=== PATIENT | female | born 1950 | race Caucasian/White ===

== ENCOUNTER → 2016-12-11 | Outpatient (CLI) | payer MEDICARE ==
[~2016-12-11] MED LIST: ASPI81TA50 PO; BIOT10TA PO; DILT120T3 PO; GABA300C10 PO; HYDR-3240 PO; METO25TA35 PO; METOPROLOL PO; MULT-516 PO; PRAV20TA2 PO; TIZA4TAB9 PO; TRAMADOL PO
[2016-12-11 08:54] LABS: ASPARTATE AMINO TRANSFERASE 15 U/L (15-37); BLOOD UREA NITROGEN 17 mg/dL (7-18)
== END | disposition home or self-care (01) ==
LOC: STAR 07:49
PROVIDERS: ATTEND Student in an Organized Health Care Education/Training Program
DX: Z01.818 Encounter for other preprocedural examination (principal); N83.209 Unspecified ovarian cyst, unspecified side; Z90.722 Acquired absence of ovaries, bilateral
CPT/HCPCS: 36415; 80053; 85025; 93005

== ENCOUNTER 2016-12-18 09:57 | Day surgery (SDC) | payer MEDICARE ==
[~2016-12-18] VITALS: Ht 170.2 cm; Wt 81.0 kg
[2016-12-18] MEDS ORDERED: LIDOCAINE 1%, 2ML ONE (10:16)
[2016-12-18] MEDS ORDERED: LACTATED RINGERS 1,000 ML IV SCH (10:20)
[2016-12-18] MEDS ORDERED: METO25TA35 PO (10:20)
[2016-12-18 10:21] VITALS: BP 148/91
[2016-12-18] MEDS ORDERED: LIDOCAINE 1%, 2ML SQ PRN (10:30)
[2016-12-18] MEDS ORDERED: FENTANYL PF 250 MCG/5ML ONE (11:16)
[2016-12-18] MEDS ORDERED: MIDAZOLAM 1 MG/ML, 2ML ONE (11:16)
[2016-12-18] MEDS ORDERED: BUPIVACAINE/PF-EPI 0.25% 1:200K ONE (11:41)
[2016-12-18] MEDS ORDERED: KETOROLAC 30 MG/1 ML ONE (12:09)
[2016-12-18] MEDS ORDERED: ROCURONIUM 10 MG/ML ONE (12:09)
[2016-12-18] MEDS ORDERED: SUCCINYLCHOLINE 20 MG/ML, 10ML ONE (12:09)
[2016-12-18] MEDS ORDERED: GLYCOPYRROLATE 0.2MG/1ML ONE (12:09)
[2016-12-18] MEDS ORDERED: DEXAMETHASONE 4 MG/ML, 1ML ONE (12:09)
[2016-12-18] MEDS ORDERED: PROPOFOL 10 MG/ML, 20ML ONE (12:09)
[2016-12-18] MEDS ORDERED: ONDANSETRON 2MG/ML, 2ML ONE (12:09)
[2016-12-18] MEDS ORDERED: NEOSTIGMINE 1 MG/ML, 10ML ONE (12:09)
[2016-12-18] MEDS ORDERED: HYDROmorphone 1 MG/ML, 1ML IV PRN (13:00)
[2016-12-18] MEDS ORDERED: MEPERIDINE/PF 25MG/0.5ML IVPush PRN (13:00)
[2016-12-18] MEDS ORDERED: LABETALOL 5MG/ML, 20ML IV PRN (13:00)
[2016-12-18] MEDS ORDERED: FENTANYL PF 100 MCG/2ML IV PRN (13:00)
[2016-12-18] MEDS ORDERED: OXYcodone 5 MG/5 ML ORAL.SOL UDC PO PRN (13:00)
[2016-12-18] MEDS ORDERED: ONDANSETRON 2MG/ML, 2ML IVPush PRN (13:00)
[2016-12-18] MEDS ORDERED: hydrALAzine 20 MG/ML, 1ML IV PRN (13:00)
[2016-12-18] MEDS ORDERED: MIDAZOLAM 1 MG/ML, 2ML IV PRN (13:00)
[2016-12-18] MEDS ORDERED: ACETAMINOPHEN 325 MG TABLET PO PRN (13:00)
[2016-12-18] MEDS ORDERED: PROMETHAZINE 25 MG/ML, 1ML IV PRN (13:00)
[2016-12-18] MEDS ORDERED: METOPROLOL 1 MG/ML, 5ML IV PRN (13:00)
[2016-12-18] MEDS ORDERED: ALBUTEROL SULFATE 2.5 MG/3 ML NPPB PRN (13:00)
[2016-12-18] MEDS ORDERED: EPHEDRINE 50 MG/ML, 1ML IVPush PRN (13:00)
[2016-12-18] MEDS ORDERED: ACETAMINOPHEN 650 MG/20.3 ML UDC ONE (13:38)
[2016-12-18] MEDS ORDERED: OXYcodone 5 MG/5 ML ORAL.SOL UDC ONE (13:38)
[2016-12-18] MEDS ORDERED: FENTANYL PF 100 MCG/2ML ONE (13:38)
== END 2016-12-18 15:40 | disposition home or self-care (01) ==
LOC: OUT 09:57 → MERGE 12:00 → OUT 15:40
PROVIDERS: ATTEND Student in an Organized Health Care Education/Training Program
DX: D27.0 Benign neoplasm of right ovary (principal); D27.1 Benign neoplasm of left ovary; D25.1 Intramural leiomyoma of uterus; D25.2 Subserosal leiomyoma of uterus; Z85.72 Personal history of non-Hodgkin lymphomas; I10 Essential (primary) hypertension; Z91.013 Allergy to seafood; Z88.6 Allergy status to analgesic agent
CPT/HCPCS: 36415; 49321; 58661; 86850; 86900; 88112; 88305; J0330; J1100; J1885; J2250; J2405; J2704; J2710; J3010; J3490; J7120; 88304

== ENCOUNTER → 2017-03-05 | Outpatient (CLI) | payer MEDICARE ==
[~2017-03-05] MED LIST changes: +OMNIPAQUE 350 MG/ML, 100ML BOTTLE ONE
== END | disposition home or self-care (01) ==
LOC: CFH 08:59
PROVIDERS: ATTEND Internal Medicine Hematology & Oncology
DX: C82.50 Diffuse follicle center lymphoma, unspecified site (principal); C82.00 Follicular lymphoma grade I, unspecified site; R59.0 Localized enlarged lymph nodes
CPT/HCPCS: 71260; 74177; Q9967

== ENCOUNTER → 2017-09-09 | Outpatient (CLI) | payer MEDICARE ==
[~2017-09-09] MED LIST changes: -OMNIPAQUE 350 MG/ML, 100ML BOTTLE ONE
== END | disposition home or self-care (01) ==
LOC: CFH 09:43
PROVIDERS: ATTEND Internal Medicine Hematology & Oncology
DX: R22.42 Localized swelling, mass and lump, left lower limb (principal); C82.05 Follicular lymphoma grade I, lymph nodes of inguinal region and lower limb

== ENCOUNTER → 2017-09-25 | Outpatient (CLI) | payer MEDICARE | END | disposition home or self-care (01) | LOC: PETCFH 12:36 | PROVIDERS: ATTEND Internal Medicine Hematology & Oncology | DX: R22.42 Localized swelling, mass and lump, left lower limb (principal); C82.05 Follicular lymphoma grade I, lymph nodes of inguinal region and lower limb | CPT/HCPCS: 78815; 93971; A9552 ==

== ENCOUNTER 2017-10-08 06:17 | Day surgery (SDC) | payer MEDICARE ==
[~2017-10-08] VITALS: Ht 170.2 cm; Wt 91.9 kg
[2017-10-08] MEDS ORDERED: CEFAZOLIN PMX 1GM/50ML 50 ML ONE (07:06)
[2017-10-08] MEDS ORDERED: ALPR0.25 PO (07:17)
[2017-10-08 07:19] VITALS: BP 132/84
[2017-10-08] MEDS ORDERED: CEFAZOLIN PMX 1GM/50ML 50 ML IV ONE (07:30)
[2017-10-08] MEDS ORDERED: SODIUM CHLORIDE 0.9% 1,000 ML IV SCH (07:30)
[2017-10-08] MEDS ORDERED: NALOXONE 1 MG/ML, 2ML ONE (07:40)
[2017-10-08] MEDS ORDERED: FLUMAZENIL 0.1 MG/1 ML, 5ML ONE (07:40)
[2017-10-08] MEDS ORDERED: MIDAZOLAM 1 MG/ML, 5ML ONE (07:40)
[2017-10-08] MEDS ORDERED: FENTANYL PF 100 MCG/2ML ONE (07:40)
[2017-10-08] MEDS ORDERED: LIDOCAINE 2%, 20ML ONE (07:59)
== END 2017-10-08 10:30 | disposition home or self-care (01) ==
LOC: OUT 06:17 → CARD 10:30
PROVIDERS: ATTEND Internal Medicine Hematology & Oncology
DX: Z45.2 Encounter for adjustment and management of vascular access device (principal); C82.05 Follicular lymphoma grade I, lymph nodes of inguinal region and lower limb; I10 Essential (primary) hypertension; Z88.1 Allergy status to other antibiotic agents; Z88.5 Allergy status to narcotic agent
CPT/HCPCS: 36561; 76937; 77001; 99156; 99157; C1894; J0690; J1642; J2250; J3010; J3490; J7030; J2310

== ENCOUNTER → 2017-12-04 | Outpatient (CLI) | payer MEDICARE ==
[~2017-12-04] MED LIST changes: +ALPR0.25 PO
== END ==
LOC: PETCFH 08:34
PROVIDERS: ATTEND Internal Medicine Hematology & Oncology
DX: C82.05 Follicular lymphoma grade I, lymph nodes of inguinal region and lower limb (principal)
CPT/HCPCS: 78815; A9552

== ENCOUNTER → 2018-02-18 | Outpatient (CLI) | payer MEDICARE | END | disposition home or self-care (01) | LOC: PETCFH 08:36 | PROVIDERS: ATTEND Internal Medicine Hematology & Oncology | DX: C82.05 Follicular lymphoma grade I, lymph nodes of inguinal region and lower limb (principal) | CPT/HCPCS: 78815; A9552 ==

== ENCOUNTER 2018-02-27 08:29 | Day surgery (SDC) | payer MEDICARE ==
[~2018-02-27] VITALS: Ht 170.2 cm; Wt 88.1 kg
[2018-02-27 09:19] VITALS: BP 119/78
[2018-02-27] MEDS ORDERED: LIDOCAINE-MPF 2%, 2ML ONE (10:19)
[2018-02-27] MEDS ORDERED: MIDAZOLAM 1 MG/ML, 5ML ONE (10:22)
[2018-02-27] MEDS ORDERED: FENTANYL PF 100 MCG/2ML ONE (10:22)
== END 2018-02-27 12:35 | disposition home or self-care (01) ==
LOC: OUT 08:29
PROVIDERS: ATTEND Internal Medicine Hematology & Oncology
DX: Z45.2 Encounter for adjustment and management of vascular access device (principal); Z85.72 Personal history of non-Hodgkin lymphomas; Z88.8 Allergy status to other drugs, medicaments and biological substances; Z88.5 Allergy status to narcotic agent; Z91.013 Allergy to seafood; Z79.899 Other long term (current) drug therapy
CPT/HCPCS: 36590; 77001; 99156; 99157; J2250; J3010; J3490

== ENCOUNTER 2019-02-10 08:02 | Outpatient (CLI) | payer MEDICARE | END 2019-02-10 23:59 | disposition home or self-care (01) | LOC: CFH 08:02 | PROVIDERS: ATTEND Internal Medicine Hematology & Oncology | DX: C82.05 Follicular lymphoma grade I, lymph nodes of inguinal region and lower limb (principal); K76.89 Other specified diseases of liver; N28.1 Cyst of kidney, acquired; M51.36 Other intervertebral disc degeneration, lumbar region | CPT/HCPCS: 71260; 74177; Q9967 ==

== ENCOUNTER 2019-02-17 09:42 | Outpatient (CLI) | payer MEDICARE | END 2019-02-17 23:59 | disposition home or self-care (01) | LOC: PETCFH 09:42 | PROVIDERS: ATTEND Internal Medicine Hematology & Oncology | DX: C82.05 Follicular lymphoma grade I, lymph nodes of inguinal region and lower limb (principal) | CPT/HCPCS: 78815; A9552 ==

== ENCOUNTER 2019-02-25 07:40 | Outpatient (CLI) | payer MEDICARE | END 2019-02-25 23:59 | disposition home or self-care (01) | LOC: CFH 07:40 | PROVIDERS: ATTEND Surgery | DX: M79.89 Other specified soft tissue disorders (principal) | CPT/HCPCS: 10035; J3490 ==

== ENCOUNTER → 2019-10-04 | Outpatient (CLI) | payer MEDICARE ==
[~2019-10-04] MED LIST changes: +ALLO100T30 PO; +ASPI-496 PO; +ONDA4TAB7 PO
== END | disposition home or self-care (01) ==
LOC: CFH 12:40
PROVIDERS: ATTEND Internal Medicine Hematology & Oncology
DX: I08.8 Other rheumatic multiple valve diseases (principal); C82.05 Follicular lymphoma grade I, lymph nodes of inguinal region and lower limb; E78.5 Hyperlipidemia, unspecified
CPT/HCPCS: 71046; 93306

== ENCOUNTER 2019-10-06 09:29 | Outpatient (CLI) | payer MEDICARE | END 2019-10-06 23:59 | disposition home or self-care (01) | LOC: CARD 09:29 | PROVIDERS: ATTEND Internal Medicine Hematology & Oncology | DX: C82.05 Follicular lymphoma grade I, lymph nodes of inguinal region and lower limb (principal) | CPT/HCPCS: 93005; 94010; 94726; 94729 ==

== ENCOUNTER 2019-12-28 14:43 | Outpatient (CLI) | payer MEDICARE ==
[2019-12-28] MEDS ORDERED: OMNIPAQUE 350 MG/ML, 75ML BOTTLE ONE (15:33)
[2019-12-28 16:32] LABS: ALANINE AMINOTRANSFERASE 21 U/L (12-78); ALBUMIN 3.3 g/dL (3.4-5.0); ANION GAP 6 mmol/L (5-15); CALCIUM 8.9 mg/dL (8.5-10.1); CHLORIDE 108 mmol/L (98-107); CREATININE 1.59 mg/dL (0.55-1.02)
[2019-12-28 16:34] LABS: ALKALINE PHOSPHATASE 75 U/L (45-117); BILIRUBIN,TOTAL 0.3 mg/dL (0.2-1.0); TOTAL PROTEIN 6.6 g/dL (6.4-8.2)
== END 2019-12-28 23:59 | disposition home or self-care (01) ==
LOC: CFH 14:43
PROVIDERS: ATTEND Internal Medicine Hematology & Oncology
DX: C82.05 Follicular lymphoma grade I, lymph nodes of inguinal region and lower limb (principal)
CPT/HCPCS: 36415; 71260; 80053; 82565; Q9967

== ENCOUNTER → 2020-01-19 | Outpatient (CLI) | payer MEDICARE | END | disposition home or self-care (01) | LOC: CARD 14:02 | PROVIDERS: ATTEND Internal Medicine Hematology & Oncology | DX: C82.05 Follicular lymphoma grade I, lymph nodes of inguinal region and lower limb (principal) | CPT/HCPCS: 94010; 94726; 94729 ==

== ENCOUNTER → 2020-01-26 | Outpatient (CLI) | payer MEDICARE ==
[2020-01-26 09:57] LABS: MEAN CORPUSCULAR HEMOGLOBIN 33.9 pg (27.0-34.8); MEAN CORPUSCULAR HGB CONC 33.1 g/dL (32.4-35.8); MEAN CORPUSCULAR VOLUME 102.6 fL (80-100); MEAN PLATELET VOLUME 10.2 fL (7.4-10.4); PLATELET COUNT 170 x10^3/uL (130-400); RED BLOOD COUNT 3.59 x10^6/uL (3.82-5.3); RED CELL DISTRIBUTION WIDTH 17.2 % (9.6-15.2)
[2020-01-26 10:22] LABS: MD YES
[2020-01-26 10:27] LABS: <PLATELET ESTIMATE> ADEQUATE; ANISOCYTOSIS 1+; BAND#(MANUAL) 0.04 x10^3/uL; BANDS%(MANUAL) 2 % (0-7); LYMPH#(MANUAL) 0.79 x10^3/uL (1-3.4); LYMPHS% (MANUAL) 36 % (22-44); MONOS#(MANUAL) 0.57 x10^3/uL (0.3-2.7); MONOS% (MANUAL) 26 % (2-9); SEG#(MANUAL) 0.79 x10^3/uL (1.8-6.8); SEGS% (MANUAL) 36 % (42-75)
[2020-01-26 10:28] LABS: <PLT MORPHOLOGY> NORMAL PLT MORPH
[2020-01-26 10:43] LABS: ALANINE AMINOTRANSFERASE 28 U/L (12-78); ALBUMIN 3.3 g/dL (3.4-5.0); ANION GAP 5 mmol/L (5-15); CALCIUM 8.8 mg/dL (8.5-10.1); CHLORIDE 106 mmol/L (98-107); CREATININE 1.49 mg/dL (0.55-1.02)
[2020-01-26 10:46] LABS: ALKALINE PHOSPHATASE 83 U/L (45-117); BILIRUBIN,TOTAL 0.3 mg/dL (0.2-1.0); TOTAL PROTEIN 6.7 g/dL (6.4-8.2)
== END | disposition home or self-care (01) ==
LOC: LAB 09:42
PROVIDERS: ATTEND Internal Medicine Hematology & Oncology
DX: Z51.11 Encounter for antineoplastic chemotherapy (principal); Z51.12 Encounter for antineoplastic immunotherapy; C82.50 Diffuse follicle center lymphoma, unspecified site; C82.00 Follicular lymphoma grade I, unspecified site; D70.1 Agranulocytosis secondary to cancer chemotherapy; F43.22 Adjustment disorder with anxiety; L03.818 Cellulitis of other sites; K76.1 Chronic passive congestion of liver; R53.0 Neoplastic (malignant) related fatigue; Z79.899 Other long term (current) drug therapy
CPT/HCPCS: 36415; 80053; 85025

== ENCOUNTER → 2020-01-31 | Outpatient (CLI) | payer MEDICARE ==
[2020-01-31 09:15] LABS: ALANINE AMINOTRANSFERASE 26 U/L (12-78); ALBUMIN 3.1 g/dL (3.4-5.0); ANION GAP 7 mmol/L (5-15); CALCIUM 8.9 mg/dL (8.5-10.1); CHLORIDE 106 mmol/L (98-107); CREATININE 1.46 mg/dL (0.55-1.02)
[2020-01-31 09:17] LABS: ALKALINE PHOSPHATASE 78 U/L (45-117); BILIRUBIN,TOTAL 0.4 mg/dL (0.2-1.0); TOTAL PROTEIN 5.9 g/dL (6.4-8.2)
[2020-01-31 09:28] LABS: MEAN CORPUSCULAR HEMOGLOBIN 33.9 pg (27.0-34.8); MEAN CORPUSCULAR HGB CONC 32.8 g/dL (32.4-35.8); MEAN CORPUSCULAR VOLUME 103.4 fL (80-100); MEAN PLATELET VOLUME 10.3 fL (7.4-10.4); PLATELET COUNT 151 x10^3/uL (130-400); RED BLOOD COUNT 3.37 x10^6/uL (3.82-5.3); RED CELL DISTRIBUTION WIDTH 17.5 % (9.6-15.2)
[2020-01-31 09:55] LABS: MD YES
[2020-01-31 09:57] LABS: ANISOCYTOSIS 1+; LYMPH#(MANUAL) 0.51 x10^3/uL (1-3.4); LYMPHS% (MANUAL) 19 % (22-44); METAMYELOCYTES# (MANUAL) 0.03 x10^3/uL (0-0); METAMYELOCYTES% (MANUAL) 1 % (0-1); MONOS#(MANUAL) 0.08 x10^3/uL (0.3-2.7); MONOS% (MANUAL) 3 % (2-9); SEG#(MANUAL) 2.08 x10^3/uL (1.8-6.8); SEGS% (MANUAL) 77 % (42-75)
[2020-01-31 10:01] LABS: <PLATELET ESTIMATE> ADEQUATE; <PLT MORPHOLOGY> NORMAL PLT MORPH
== END | disposition home or self-care (01) ==
LOC: LAB 08:48
PROVIDERS: ATTEND Internal Medicine Hematology & Oncology
DX: Z51.11 Encounter for antineoplastic chemotherapy (principal); Z51.12 Encounter for antineoplastic immunotherapy; C82.05 Follicular lymphoma grade I, lymph nodes of inguinal region and lower limb; C82.00 Follicular lymphoma grade I, unspecified site; D70.1 Agranulocytosis secondary to cancer chemotherapy; L03.818 Cellulitis of other sites; K76.1 Chronic passive congestion of liver; R53.0 Neoplastic (malignant) related fatigue; R59.0 Localized enlarged lymph nodes; F43.22 Adjustment disorder with anxiety; Z79.899 Other long term (current) drug therapy
CPT/HCPCS: 36415; 80053; 85025

== ENCOUNTER → 2020-02-04 | Outpatient (CLI) | payer MEDICARE ==
[2020-02-04 10:11] LABS: MEAN CORPUSCULAR HEMOGLOBIN 34.5 pg (27.0-34.8); MEAN CORPUSCULAR VOLUME 104.5 fL (80-100); PLATELET COUNT 124 x10^3/uL (130-400); RED BLOOD COUNT 3.52 x10^6/uL (3.82-5.3); RED CELL DISTRIBUTION WIDTH 17.6 % (9.6-15.2)
[2020-02-04 10:25] LABS: ANION GAP 6 mmol/L (5-15); CALCIUM 8.5 mg/dL (8.5-10.1); CHLORIDE 100 mmol/L (98-107)
[2020-02-04 10:28] LABS: ALANINE AMINOTRANSFERASE 25 U/L (12-78); ALKALINE PHOSPHATASE 80 U/L (45-117); BILIRUBIN,TOTAL 0.5 mg/dL (0.2-1.0); CREATININE 1.68 mg/dL (0.55-1.02); TOTAL PROTEIN 6.3 g/dL (6.4-8.2)
[2020-02-04 10:53] LABS: MD YES
[2020-02-04 11:20] LABS: LYMPH#(MANUAL) 0.38 x10^3/uL (1-3.4); LYMPHS% (MANUAL) 13 % (22-44); METAMYELOCYTES# (MANUAL) 0.06 x10^3/uL (0-0); METAMYELOCYTES% (MANUAL) 2 % (0-1); MONOS% (MANUAL) 7 % (2-9); SEG#(MANUAL) 2.26 x10^3/uL (1.8-6.8); SEGS% (MANUAL) 78 % (42-75)
[2020-02-04 11:21] LABS: ANISOCYTOSIS 1+; LARGE PLATELETS 1+
[2020-02-04 11:23] LABS: <PLATELET ESTIMATE> DECREASED
== END | disposition home or self-care (01) ==
LOC: LAB 09:54
PROVIDERS: ATTEND Internal Medicine Hematology & Oncology
DX: Z51.11 Encounter for antineoplastic chemotherapy (principal); Z51.12 Encounter for antineoplastic immunotherapy; C82.05 Follicular lymphoma grade I, lymph nodes of inguinal region and lower limb; C82.00 Follicular lymphoma grade I, unspecified site; D70.1 Agranulocytosis secondary to cancer chemotherapy; L03.818 Cellulitis of other sites; R53.0 Neoplastic (malignant) related fatigue; K76.1 Chronic passive congestion of liver; R59.0 Localized enlarged lymph nodes; F43.22 Adjustment disorder with anxiety; Z79.899 Other long term (current) drug therapy
CPT/HCPCS: 36415; 80053; 85025

== ENCOUNTER 2020-03-07 14:38 | Outpatient (CLI) | payer MEDICARE ==
[2020-03-10] MEDS ORDERED: POTA20TA89 PO (08:33)
== END 2020-03-07 23:59 | disposition home or self-care (01) ==
LOC: CARD 14:38
PROVIDERS: ATTEND Internal Medicine Hematology & Oncology
DX: Z51.11 Encounter for antineoplastic chemotherapy (principal); R94.2 Abnormal results of pulmonary function studies; C82.05 Follicular lymphoma grade I, lymph nodes of inguinal region and lower limb; N18.3 Chronic kidney disease, stage 3 (moderate)
CPT/HCPCS: 94010; 94726; 94729

== ENCOUNTER 2020-04-12 07:58 | Day surgery (SDC) | payer MEDICARE ==
[~2020-04-12] VITALS: Ht 167.6 cm; Wt 73.1 kg
[~2020-04-12 07:58] MED LIST changes: +POTA20TA89 PO
[2020-04-12 09:13] VITALS: BP 168/97
[2020-04-12] MEDS ORDERED: ACYCLOVIR (09:16)
[2020-04-12 09:58] LABS: MEAN CORPUSCULAR HEMOGLOBIN 35.4 pg (27.0-34.8); MEAN CORPUSCULAR HGB CONC 33.3 g/dL (32.4-35.8); MEAN PLATELET VOLUME 8.9 fL (7.4-10.4); PLATELET COUNT 234 x10^3/uL (130-400); RED CELL DISTRIBUTION WIDTH 17.3 % (9.6-15.2)
[2020-04-12] MEDS ORDERED: MIDAZOLAM 1 MG/ML, 5ML ONE (10:17)
[2020-04-12] MEDS ORDERED: FENTANYL PF 100 MCG/2ML ONE (10:17)
[2020-04-12] MEDS ORDERED: FLUMAZENIL 0.1 MG/1 ML, 5ML ONE (10:17)
[2020-04-12] MEDS ORDERED: NALOXONE 1 MG/ML, 2ML ONE (10:17)
[2020-04-12 10:37] LABS: MD YES
[2020-04-12 10:43] LABS: BANDS%(MANUAL) 2 % (0-7); BASOS#(MANUAL) 0.05 x10^3/uL (0-0.1); BASOS% (MANUAL) 1 % (0-1); LYMPH#(MANUAL) 0.93 x10^3/uL (1-3.4); LYMPHS% (MANUAL) 19 % (22-44); METAMYELOCYTES# (MANUAL) 0.05 x10^3/uL (0-0); METAMYELOCYTES% (MANUAL) 1 % (0-1); MONOS#(MANUAL) 0.74 x10^3/uL (0.3-2.7); MONOS% (MANUAL) 15 % (2-9); SEG#(MANUAL) 3.04 x10^3/uL (1.8-6.8); SEGS% (MANUAL) 62 % (42-75)
[2020-04-12 10:44] LABS: PMNS WITH VACUOLES 1+; TOXIC GRAN 1+
[2020-04-12 10:45] LABS: <PLATELET ESTIMATE> ADEQUATE; <PLT MORPHOLOGY> NORMAL PLT MORPH
[2020-04-12 10:46] LABS: ANISOCYTOSIS 1+
[2020-04-12 10:51] LABS: TEAR DROPS 1+
[2020-04-12 10:53] LABS: POLYCHROMASIA 1+
== END 2020-04-12 11:55 | disposition home or self-care (01) ==
LOC: OUT 07:58
PROVIDERS: ATTEND Internal Medicine Hematology & Oncology
DX: C82.05 Follicular lymphoma grade I, lymph nodes of inguinal region and lower limb (principal); I10 Essential (primary) hypertension; Z88.5 Allergy status to narcotic agent; Z91.013 Allergy to seafood; Z79.899 Other long term (current) drug therapy; Z72.89 Other problems related to lifestyle; Z82.49 Family history of ischemic heart disease and other diseases of the circulatory system
CPT/HCPCS: 36415; 38222; 77012; 85025; 85060; 85097; 88237; 88264; 88280; 88305; 88311; 88313; 99156; 99157; J2250; J3010; J2310

== ENCOUNTER 2020-07-29 10:34 | Emergency (ER) | payer MEDICARE ==
[~2020-07-29] VITALS: Ht 165.1 cm; Wt 70.6 kg
[~2020-07-29 10:34] MED LIST changes: +ACYCLOVIR; +DILT60TA30 PO
[2020-07-29] MEDS ORDERED: SODIUM CHLORIDE 0.9% 1,000 ML IV ONE (11:30)
[2020-07-29] MEDS ORDERED: AZITHROMYCIN 500 MG TABLET PO/NG ONE (11:30)
[2020-07-29] MEDS ORDERED: DEXAMETHASONE 4 MG/ML, 1ML IVPush ONE (11:30)
[2020-07-29] MEDS ORDERED: SODIUM CHLORIDE FLUSH 10ML SYR IVF ONE (11:30)
[2020-07-29] MEDS ORDERED: CEFTRIAXONE PMX 1GM/50ML 50 ML IV ONE (11:30)
[2020-07-29 11:44] LABS: MEAN CORPUSCULAR HEMOGLOBIN 33.7 pg (27.0-34.8); MEAN CORPUSCULAR HGB CONC 34.4 g/dL (32.4-35.8); PLATELET COUNT 295 x10^3/uL (130-400); RED BLOOD COUNT 3.25 x10^6/uL (3.82-5.3); RED CELL DISTRIBUTION WIDTH 13.6 % (9.6-15.2)
[2020-07-29 11:56] LABS: ALANINE AMINOTRANSFERASE 20 U/L (12-78); ALBUMIN 2.9 g/dL (3.4-5.0); ANION GAP 7 mmol/L (5-15); CALCIUM 9.3 mg/dL (8.5-10.1); CHLORIDE 100 mmol/L (98-107); CREATININE 2.51 mg/dL (0.55-1.02)
[2020-07-29] MEDS ORDERED: AZITHROMYCIN 250 MG TABLET ONE (11:56)
[2020-07-29] MEDS ORDERED: CEFTRIAXONE PMX 1GM/50ML 50 ML ONE (11:56)
[2020-07-29] MEDS ORDERED: DEXAMETHASONE 4 MG/ML, 1ML ONE (11:56)
[2020-07-29 11:58] LABS: ALKALINE PHOSPHATASE 69 U/L (45-117); BILIRUBIN,TOTAL 0.3 mg/dL (0.2-1.0); TOTAL PROTEIN 7.2 g/dL (6.4-8.2)
[2020-07-29 12:06] LABS: MD YES
[2020-07-29 12:08] VITALS: BP 134/77
[2020-07-29 12:08] LABS: LYMPH#(MANUAL) 0.48 x10^3/uL (1-3.4); LYMPHS% (MANUAL) 7 % (22-44); MONOS#(MANUAL) 0.48 x10^3/uL (0.3-2.7); MONOS% (MANUAL) 7 % (2-9); SEG#(MANUAL) 5.85 x10^3/uL (1.8-6.8); SEGS% (MANUAL) 86 % (42-75)
[2020-07-29 12:09] LABS: <PLATELET ESTIMATE> ADEQUATE; <PLT MORPHOLOGY> NORMAL PLT MORPH; <RBC MORPHOLOGY> NORMAL
[2020-07-29 13:04] LABS: MICROSCOPIC AUTO
== END 2020-07-29 14:16 | disposition home or self-care (01) ==
LOC: ED 11:09
DX: J18.9 Pneumonia, unspecified organism (principal); Z20.822 Contact with and (suspected) exposure to COVID-19; R63.0 Anorexia; M79.10 Myalgia, unspecified site; R51.9 Headache, unspecified; R30.0 Dysuria; I10 Essential (primary) hypertension; E78.00 Pure hypercholesterolemia, unspecified; Z90.722 Acquired absence of ovaries, bilateral; Z68.25 Body mass index [BMI] 25.0-25.9, adult
CPT/HCPCS: 36415; 71045; 80053; 81001; 83605; 84145; 85025; 87040; 87635; 96365; 96375; 99285; J0696; J1100; J7030

== ENCOUNTER → 2020-08-25 | Outpatient (CLI) | payer MEDICARE ==
[~2020-08-25] MED LIST changes: -DILT60TA30 PO; +DILT60TA36 PO; +HYDR-1067 PO; -HYDR-3240 PO
[2020-08-25 11:03] LABS: ALANINE AMINOTRANSFERASE 18 U/L (12-78); ALBUMIN 3.6 g/dL (3.4-5.0); ANION GAP 7 mmol/L (5-15); CALCIUM 9.5 mg/dL (8.5-10.1); CHLORIDE 106 mmol/L (98-107)
[2020-08-25 11:06] LABS: ALKALINE PHOSPHATASE 81 U/L (45-117); BILIRUBIN,TOTAL 0.4 mg/dL (0.2-1.0); CREATININE 2.05 mg/dL (0.55-1.02); TOTAL PROTEIN 6.7 g/dL (6.4-8.2)
[2020-08-25 11:19] LABS: BASOPHILS % (AUTO) 1 % (0-1); EOSINOPHILS % (AUTO) 9 % (1-7); LYMPHOCYTES % (AUTO) 18 % (22-44); MEAN CORPUSCULAR HEMOGLOBIN 34.9 pg (27.0-34.8); MEAN CORPUSCULAR HGB CONC 34.4 g/dL (32.4-35.8); MONOCYTES % (AUTO) 9 % (2-9); NEUTROPHILS % (AUTO) 63 % (42-75); PLATELET COUNT 254 x10^3/uL (130-400); RED BLOOD COUNT 3.05 x10^6/uL (3.82-5.3); RED CELL DISTRIBUTION WIDTH 15.2 % (9.6-15.2)
[2020-08-25 11:25] LABS: MD NO
== END | disposition home or self-care (01) ==
LOC: LAB 10:36
PROVIDERS: ATTEND Internal Medicine Hematology & Oncology
DX: Z51.11 Encounter for antineoplastic chemotherapy (principal); Z51.12 Encounter for antineoplastic immunotherapy; C82.05 Follicular lymphoma grade I, lymph nodes of inguinal region and lower limb; C82.00 Follicular lymphoma grade I, unspecified site; D70.1 Agranulocytosis secondary to cancer chemotherapy; L03.818 Cellulitis of other sites; K76.1 Chronic passive congestion of liver; R53.0 Neoplastic (malignant) related fatigue; R59.0 Localized enlarged lymph nodes; Z79.899 Other long term (current) drug therapy; F43.22 Adjustment disorder with anxiety
CPT/HCPCS: 36415; 80053; 83735; 85025

== ENCOUNTER → 2020-10-26 | Outpatient (CLI) | payer MEDICARE ==
[~2020-10-26] MED LIST changes: +DILT60TA30 PO; -DILT60TA36 PO
== END | disposition home or self-care (01) ==
LOC: CFH 15:37
PROVIDERS: ATTEND Internal Medicine Nephrology
DX: C85.89 Other specified types of non-Hodgkin lymphoma, extranodal and solid organ sites (principal); I12.9 Hypertensive chronic kidney disease with stage 1 through stage 4 chronic kidney disease, or unspecified chronic kidney disease; N17.9 Acute kidney failure, unspecified; E87.6 Hypokalemia; Z94.84 Stem cells transplant status
CPT/HCPCS: 76770

== ENCOUNTER → 2020-11-22 | Outpatient (CLI) | payer MEDICARE ==
[~2020-11-22] MED LIST changes: -HYDR-1067 PO; +HYDR-2214 PO
[2020-11-22 10:54] LABS: ABSOLUTE RETICS # 0.023 x10^6/uL (0.5-2.5); BASOPHILS % (AUTO) 0 % (0-1); EOSINOPHILS % (AUTO) 12 % (1-7); LYMPHOCYTES % (AUTO) 13 % (22-44); MEAN CORPUSCULAR HEMOGLOBIN 34.1 pg (27.0-34.8); MEAN CORPUSCULAR HGB CONC 33.7 g/dL (32.4-35.8); MEAN PLATELET VOLUME 8.9 fL (7.4-10.4); MONOCYTES % (AUTO) 12 % (2-9); NEUTROPHILS % (AUTO) 62 % (42-75); PLATELET COUNT 262 x10^3/uL (130-400); RED BLOOD COUNT 3.32 x10^6/uL (3.82-5.3); RED CELL DISTRIBUTION WIDTH 12.6 % (9.6-15.2)
[2020-11-22 11:02] LABS: % IRON SATURATION 15 % (20-55); IRON LEVEL 37 mcg/dL (50-170); TOTAL IRON BINDING CAPACITY 254 mcg/dL (250-450)
[2020-11-22 11:08] LABS: MD SCAN
[2020-11-22 11:35] LABS: FOLATE LEVEL > 20.0 ng/mL (3.1-17.5)
== END | disposition home or self-care (01) ==
LOC: LAB 10:29
PROVIDERS: ATTEND Internal Medicine Hematology & Oncology
DX: Z51.12 Encounter for antineoplastic immunotherapy (principal); Z51.11 Encounter for antineoplastic chemotherapy; C82.06 Follicular lymphoma grade I, intrapelvic lymph nodes; C82.05 Follicular lymphoma grade I, lymph nodes of inguinal region and lower limb; C82.00 Follicular lymphoma grade I, unspecified site; D70.1 Agranulocytosis secondary to cancer chemotherapy; F43.22 Adjustment disorder with anxiety; L03.818 Cellulitis of other sites; K76.1 Chronic passive congestion of liver; R53.0 Neoplastic (malignant) related fatigue; R59.0 Localized enlarged lymph nodes; Z79.899 Other long term (current) drug therapy
CPT/HCPCS: 36415; 82607; 82668; 82728; 82746; 83540; 83550; 85025; 85045

== ENCOUNTER 2020-11-25 13:28 | Emergency (ER) | payer MEDICARE ==
[~2020-11-25] VITALS: Ht 165.1 cm; Wt 71.7 kg
--- NOTE | 2020-11-25 13:44 | NUR ---
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
--- NOTE | 2020-11-25 14:04 | NUR ---
PT AMBULATORY TO ROOM 10 W/ C/O FEELING SOB, CHEST TIGHTNESS, COUGH, FEVER LAST NOC HIGH 102 F, GEN WEAKNESS, CHILLS STARTED 5 DAYS AGO. PT STATES SHE HAS RECEIVED BOTH COVID VACCINES IN MID SEPTEMBER. PT STATES HX PNA AND IS CONCERNED FOR THAT. PT SPEAKING IN FULL SENTENCES. PT RESTING ON GURNEY. NADN. MONITORS APPLIED. VSS. WARM BLANKET PROVIDED.
--- NOTE | 2020-11-25 14:12 | NUR ---
PT ATTEMPTED UA SAMPLE W/O SUCCESS.
[2020-11-25 14:31] LABS: BASOPHILS % (AUTO) 1 % (0-1); EOSINOPHILS % (AUTO) 15 % (1-7); LYMPHOCYTES % (AUTO) 15 % (22-44); MEAN CORPUSCULAR HEMOGLOBIN 34.9 pg (27.0-34.8); MEAN CORPUSCULAR HGB CONC 34.5 g/dL (32.4-35.8); MEAN PLATELET VOLUME 8.7 fL (7.4-10.4); MONOCYTES % (AUTO) 17 % (2-9); NEUTROPHILS % (AUTO) 53 % (42-75); PLATELET COUNT 258 x10^3/uL (130-400); RED BLOOD COUNT 3.22 x10^6/uL (3.82-5.3)
[2020-11-25 14:42] LABS: ALANINE AMINOTRANSFERASE 18 U/L (12-78); ALBUMIN 3.4 g/dL (3.4-5.0); ANION GAP 5 mmol/L (5-15); CALCIUM 9.3 mg/dL (8.5-10.1); CHLORIDE 105 mmol/L (98-107); CREATININE 2.74 mg/dL (0.55-1.02)
[2020-11-25 14:46] LABS: ALKALINE PHOSPHATASE 100 U/L (45-117); BILIRUBIN,TOTAL 0.2 mg/dL (0.2-1.0); TOTAL PROTEIN 7.2 g/dL (6.4-8.2); TROPONIN I < 0.015 ng/mL (0.000-0.045)
--- NOTE | 2020-11-25 14:51 | NUR ---
BREAK RN: WHITNEY SENT
[2020-11-25 14:54] LABS: MD SCAN
--- NOTE | 2020-11-25 15:07 | NUR ---
MD HEALY AT BEDSIDE.
[2020-11-25 15:12] LABS: MICROSCOPIC AUTO
[2020-11-25 15:23] VITALS: BP 135/76
--- NOTE | 2020-11-25 15:24 | NUR ---
PT RESTING ON GURNEY. NADN. SU.
== END 2020-11-25 15:39 | disposition home or self-care (01) ==
LOC: ED 14:39
DX: R50.9 Fever, unspecified (principal); R07.89 Other chest pain; R05 Cough; R53.1 Weakness; I12.9 Hypertensive chronic kidney disease with stage 1 through stage 4 chronic kidney disease, or unspecified chronic kidney disease; N18.30 Chronic kidney disease, stage 3 unspecified; E78.00 Pure hypercholesterolemia, unspecified; Z88.5 Allergy status to narcotic agent; Z90.710 Acquired absence of both cervix and uterus
CPT/HCPCS: 36415; 71045; 80053; 81001; 84145; 84484; 85025; 87040; 87086; 93005; 99285

== ENCOUNTER 2020-12-25 13:50 | Emergency (ER) | payer MEDICARE ==
[~2020-12-25] VITALS: Ht 172.7 cm; Wt 78.1 kg
--- NOTE | 2020-12-25 14:11 | NUR ---
TO ERICA FROM LOBBY
[2020-12-25 14:39] LABS: BASOPHILS % (AUTO) 1 % (0-1); EOSINOPHILS % (AUTO) 2 % (1-7); LYMPHOCYTES % (AUTO) 21 % (22-44); MEAN CORPUSCULAR HEMOGLOBIN 34.3 pg (27.0-34.8); MEAN PLATELET VOLUME 9.4 fL (7.4-10.4); MONOCYTES % (AUTO) 13 % (2-9); NEUTROPHILS % (AUTO) 64 % (42-75); PLATELET COUNT 220 x10^3/uL (130-400); RED BLOOD COUNT 3.09 x10^6/uL (3.82-5.3); RED CELL DISTRIBUTION WIDTH 13.4 % (9.6-15.2)
--- NOTE | 2020-12-25 14:45 | NUR ---
PT NEEDING TO USE THE RESTROOM. PT GIVEN A URINE CUP TO VOID AND COLLECT SAMPLE ENCASE NEEDED.
[2020-12-25 14:51] LABS: ALBUMIN 3.5 g/dL (3.4-5.0); ANION GAP 5 mmol/L (5-15); CALCIUM 9.2 mg/dL (8.5-10.1); CHLORIDE 108 mmol/L (98-107); CREATININE 2.94 mg/dL (0.55-1.02)
[2020-12-25 14:55] LABS: TROPONIN I < 0.015 ng/mL (0.000-0.045)
[2020-12-25 15:47] VITALS: BP 132/70
--- NOTE | 2020-12-25 15:47 | NUR ---
ASSUMED CARE FOR DISCHARGE ONLY Patient/Caregiver given discharge instructions and they have confirmed that they understand the instructions. Patient ambulatory with steady gait. NAD, all questions answered appropriately, denies additional needs at this time. No personal belongings left in room after discharge.
== END 2020-12-25 15:48 | disposition home or self-care (01) ==
LOC: ED 15:44
DX: I49.3 Ventricular premature depolarization (principal)
CPT/HCPCS: 36415; 71045; 80048; 82040; 83735; 84484; 85025; 93005; 99285

== ENCOUNTER 2021-02-19 12:00 | Day surgery (SDC) | payer MEDICARE ==
[~2021-02-19] VITALS: Ht 166.4 cm; Wt 72.4 kg
[2021-02-19] MEDS ORDERED: VITAMIN D PO (12:49)
[2021-02-19] MEDS ORDERED: PRAV40TA2 PO (12:49)
[2021-02-19] MEDS ORDERED: ACYC-40 PO (12:49)
[2021-02-19] MEDS ORDERED: ASPI81TA45 PO (12:49)
[2021-02-19 12:51] VITALS: BP 138/86
[2021-02-19] MEDS ORDERED: SODIUM CHLORIDE 0.9% 1,000 ML IV SCH (13:00)
[2021-02-19 13:21] LABS: INTERNATIONAL NORMALIZED RATIO 0.99 (0.93-1.1); PROTHROMBIN TIME 10.6 Seconds (9.6-11.5)
[2021-02-19] MEDS ORDERED: NALOXONE 1 MG/ML, 2ML ONE (13:46)
[2021-02-19] MEDS ORDERED: FLUMAZENIL 0.1 MG/1 ML, 5ML ONE (13:46)
[2021-02-19] MEDS ORDERED: FENTANYL PF 100 MCG/2ML ONE ×2 (13:46)
[2021-02-19] MEDS ORDERED: MIDAZOLAM 1 MG/ML, 5ML ONE (13:46)
== END 2021-02-19 15:30 | disposition home or self-care (01) ==
LOC: OUT 12:00 → EDSTATUS 14:00 → OUT 15:30
PROVIDERS: ATTEND Internal Medicine Nephrology
DX: I12.9 Hypertensive chronic kidney disease with stage 1 through stage 4 chronic kidney disease, or unspecified chronic kidney disease (principal); N18.4 Chronic kidney disease, stage 4 (severe); N17.9 Acute kidney failure, unspecified; N25.81 Secondary hyperparathyroidism of renal origin; E78.5 Hyperlipidemia, unspecified; Z79.82 Long term (current) use of aspirin; Z79.899 Other long term (current) drug therapy; Z88.5 Allergy status to narcotic agent; Z91.013 Allergy to seafood
CPT/HCPCS: 36415; 50200; 77012; 85610; 88300; 88305; 88313; 88341; 88342; 88346; 88348; 88350; 99156; J2250; J3010; J7030; 99157; J2310